=== PATIENT | female | born 1930 | race Caucasian/White ===

== ENCOUNTER 2016-06-23 15:51 | Inpatient (IN) | payer OTHER ==
[~2016-06-23] VITALS: Ht 154.9 cm; Wt 110.4 kg
[~2016-06-23 15:51] MED LIST: ACID REDUCER 1150 MG PO; ADVAIR HFA120 INHAL1 IH; AMOX TR-K CLV1 EAC4 PO; AUGMENTIN875 MG PO; Advair HFA 230/21 IH; BACTERICIN30 GM TP; CALCIUM 600 +1 EAC1 PO; CRANBERRY425 MG PO; CRANBERRY450 M1 PO; Colace PO; DAILY VALUE1 EACH PO; DAILY VITE1 EAC1 PO; DICLOFENAC SOD100 G1 TP; DITROPAN5 MG PO; DULCOLAX10 MG PR; DULCOLAX5 MG PO; DUONEB 2.5-0.5 M3 ML AEROSOL; FEOSOL325 MG PO; FERROUS SULFAT325 MG PO; FLORASTOR250 MG PO; FUROSEMIDE20 MG PO; FUROSEMIDE40 MG PO; HEALTHYLAX17 GM PO; IRON325 MG PO; LASIX20 MG PO; LASIX40 MG PO; LEVAQUIN500 MG PO; LEVOFLOXACIN750 MG PO; LIDODERM 5% P1 PATCH TD; LORTAB 5-325 M1 EACH PO; Levaquin PO; Lovenox SC; MILK OF MAGN PO; MIRALAX17 GM PO; MIRALAX255 GM PO; NORCO 5/3251 TABLET PO; ONE DAILY1 EAC3 PO; OS-CAL 500+D T1 EAC1 PO; OXYBUTYNIN CHLO10 MG PO; OXYBUTYNIN CHLOR5 M1 PO; OXYBUTYNIN CHLOR5 MG PO; PHILLIPS'400 MG/5 M PO; PREDNISONE10 MG PO; PREDNISONE20 MG PO; PREDNISONE5 MG PO; PROBIOTIC & AC1 EACH PO; PROVENTIL,2.5 MG/0.5 IH; RANITIDINE HCL150 MG PO; SENNA PLUS TAB1 EACH PO; SPIRIVA1 INHALATI IH; SPIRONOLACTONE50 MG PO; TYLENOL REGULA325 MG PO; VOLTAREN 1% GE100 GM TP; Xanax PO; ZANTAC150 MG PO; Zestril,Prinivil PO; [UNRECOGNIZED DRUG - OTHER] PO; oxyCODONE PO; predniSONE PO
[2016-06-23 17:21] LABS: EOSINOPHIL (%) 1.2 % (0-5); EOSINOPHIL COUNT 0.2 K/uL (0-0.3); HEMATOCRIT 40.2 % (36.0-46.0); IMMATURE GRANULOCYTE (%) 0.3 % (0.0-0.7); IMMATURE GRANULOCYTE COUNT 0.4 K/uL; LYMPHOCYTE COUNT 2.1 K/uL (1.0-2.8); MCHC 31.6 G/DL (30.0-36.0); MCV 91.8 FL (83-99); MEAN PLAT.VOLUME 10.1 uM^3 (9.5-12.4); MONOCYTE (%) 7.2 % (3-12); MONOCYTE COUNT 0.9 K/uL (0-0.8); NEUTROPHIL (%) 74.7 % (45-76); NEUTROPHIL COUNT 9.5 K/uL (1.8-6.4); PLATELET COUNT 236 K/uL (156-360); RBC DIS.WIDTH-CV 13.9 % (11.8-14.6); RBC DIS.WIDTH-SD 45.2 % (39-53); RED BLOOD COUNT 4.38 M/uL (3.80-5.20); WHITE BLOOD COUNT 12.7 K/uL (4.1-10.2)
[2016-06-23 17:28] LABS: CHLORIDE 95 mEq/L (99-109); POTASSIUM 4.4 mEq/L (3.7-5.4); SODIUM 133 mEq/L (136-147)
[2016-06-23 17:31] LABS: GLUCOSE 121 mg/dL (70-99)
[2016-06-23 17:32] LABS: ANION GAP 11 MEQ/L (2-14)
[2016-06-23 17:33] LABS: TOTAL BILIRUBIN 0.4 mg/dL (0.0-1.0)
[2016-06-23 17:34] LABS: ALKALINE PHOSPHATASE 82 IU/L (3-129); GFR ESTIMATE (CALCULATED) 46 mL/min/
[2016-06-23 17:35] LABS: UREA NITROGEN (BUN) 17 mg/dL (9-23)
[2016-06-23 19:09] LABS: BASE EXCESS 8.1 mEq/L (-3 to +3); BICARBONATE 33.9 mEq/L (22-26); CARBOXY HGB 2.2 % (0-5); METHEMOGLOBIN 1.5 % (0-1.5); PO2 62 mm Hg (80-100); pH 7.43 (7.35-7.45)
[2016-06-23 19:10] LABS: COMMENTS - BLOOD GASES C+; DEVICE NC; O2 FLOW 4 L/MIN; PCO2 51 mm Hg (35-45); SITE RR; TOTAL RESP RATE 16 resp/min
[2016-06-23] MEDS ORDERED: SPIRONOLACTONE50 MG PO (19:43)
[2016-06-23] MEDS ORDERED: CRANBERRY450 M1 PO (19:43)
[2016-06-23] MEDS ORDERED: FUROSEMIDE20 MG PO (19:43)
[2016-06-23] MEDS ORDERED: RANITIDINE HCL150 MG PO (19:45)
[2016-06-23] MEDS ORDERED: CALCIUM 600 +1 EA13 PO (19:46)
[2016-06-23] MEDS ORDERED: PROMETHAZINE HC25 M1 PO (19:48)
[2016-06-23] MEDS ORDERED: PHILLIPS'400 MG/5 M PO (19:48)
[2016-06-23 22:29] VITALS: BP 108/50
[2016-06-23 22:45] LABS: INFLUENZA A VIRAL ANTIGEN NEGATIVE; INFLUENZA B VIRAL ANTIGEN NEGATIVE
[2016-06-24 04:46] VITALS: BP 126/63
[2016-06-24 07:05] LABS: HEMATOCRIT 40.2 % (36.0-46.0); MCH 29.5 PG (29.0-34.0); MCHC 31.6 G/DL (30.0-36.0); MCV 93.3 FL (83-99); MEAN PLAT.VOLUME 10.9 uM^3 (9.5-12.4); PLATELET COUNT 215 K/uL (156-360); RBC DIS.WIDTH-CV 14.1 % (11.8-14.6); RBC DIS.WIDTH-SD 47.8 % (39-53); RED BLOOD COUNT 4.31 M/uL (3.80-5.20)
[2016-06-24 07:35] LABS: ALKALINE PHOSPHATASE 79 IU/L (3-129); ANION GAP 12 MEQ/L (2-14); CHLORIDE 94 MEQ/L (99-109); GFR ESTIMATE (CALCULATED) 46 mL/min/; POTASSIUM 4.4 MEQ/L (3.7-5.4); SAMPLE HEMOLYSIS CHECK 0; SAMPLE ICTERIC CHECK 0; SAMPLE LIPEMIA CHECK 0; SODIUM 137 MEQ/L (136-147); TOTAL BILIRUBIN 0.4 MG/DL (0.0-1.0); UREA NITROGEN (BUN) 16 mg/dL (9-23)
[2016-06-24 07:36] LABS: GLUCOSE 195 mg/dL (70-99)
[2016-06-24 08:12] VITALS: BP 134/67
[2016-06-24 11:15] VITALS: BP 133/65
[2016-06-24 16:50] VITALS: BP 113/65
[2016-06-24 20:00] VITALS: BP 129/66
[2016-06-24 23:33] VITALS: BP 122/62
[2016-06-25 04:00] VITALS: BP 121/64
[2016-06-25 07:13] LABS: MCH 28.3 PG (29.0-34.0); MCHC 30.3 G/DL (30.0-36.0); MCV 93.4 FL (83-99); MEAN PLAT.VOLUME 10.5 uM^3 (9.5-12.4); PLATELET COUNT 217 K/uL (156-360); RBC DIS.WIDTH-CV 13.9 % (11.8-14.6); RBC DIS.WIDTH-SD 47.8 % (39-53); RED BLOOD COUNT 4.07 M/uL (3.80-5.20); WHITE BLOOD COUNT 12.8 K/uL (4.1-10.2)
[2016-06-25 07:36] LABS: ANION GAP 8 MEQ/L (2-14); CHLORIDE 95 MEQ/L (99-109); GFR ESTIMATE (CALCULATED) 56 mL/min/; GLUCOSE 254 mg/dL (70-99); POTASSIUM 4.1 MEQ/L (3.7-5.4); SAMPLE HEMOLYSIS CHECK 0; SAMPLE ICTERIC CHECK 0; SAMPLE LIPEMIA CHECK 0; SODIUM 137 MEQ/L (136-147); UREA NITROGEN (BUN) 23 mg/dL (9-23)
[2016-06-25 08:14] VITALS: BP 135/69
[2016-06-25 12:54] VITALS: BP 142/78
[2016-06-25 16:00] VITALS: BP 124/65
[2016-06-25 21:29] LABS: POINT-OF-CARE METER ID UU14174225
[2016-06-26] VITALS: BP 116/55
[2016-06-26 05:32] LABS: HEMATOCRIT 38.6 % (36.0-46.0); MCH 29.2 PG (29.0-34.0); MCHC 30.8 G/DL (30.0-36.0); MCV 94.6 FL (83-99); MEAN PLAT.VOLUME 11.1 uM^3 (9.5-12.4); PLATELET COUNT 231 K/uL (156-360); RBC DIS.WIDTH-CV 14.1 % (11.8-14.6); RBC DIS.WIDTH-SD 48.5 % (39-53); RED BLOOD COUNT 4.08 M/uL (3.80-5.20); WHITE BLOOD COUNT 15.5 K/uL (4.1-10.2)
[2016-06-26 05:55] LABS: ANION GAP 8 MEQ/L (2-14); CHLORIDE 97 MEQ/L (99-109); GFR ESTIMATE (CALCULATED) 56 mL/min/; GLUCOSE 142 mg/dL (70-99); POTASSIUM 4.4 MEQ/L (3.7-5.4); SAMPLE HEMOLYSIS CHECK 0; SAMPLE ICTERIC CHECK 0; SAMPLE LIPEMIA CHECK 0; SODIUM 139 MEQ/L (136-147); UREA NITROGEN (BUN) 30 mg/dL (9-23)
[2016-06-26 07:46] VITALS: BP 153/80
[2016-06-26 08:47] LABS: Estimated Average Glucose 137 mg/dL (70-123); HEMOGLOBIN A1c (GLYCOHEMOGLOB) 6.4 % HGB (Below 5.7)
[2016-06-26] MEDS ORDERED: BENZONATATE100 MG PO (09:15)
[2016-06-26] MEDS ORDERED: LEVEMIR100 UNIT/2 SC (09:15)
[2016-06-26] MEDS ORDERED: PREDNISONE20 MG PO (09:15)
[2016-06-26] MEDS ORDERED: LEVAQUIN500 MG PO (09:16)
== END 2016-06-26 13:02 | DRG 871 ==
LOC: EME 15:51 → 5SOUTH 19:35 → EDOF 19:35 → 5SOUTH 22:03
PROVIDERS: Emergency Medicine; Hospitalist; Physician Assistant Medical
DX: A41.9 Sepsis, unspecified organism (principal); J44.0 Chronic obstructive pulmonary disease with (acute) lower respiratory infection; J18.1 Lobar pneumonia, unspecified organism; J96.21 Acute and chronic respiratory failure with hypoxia; J96.22 Acute and chronic respiratory failure with hypercapnia; Y95 Nosocomial condition; J44.1 Chronic obstructive pulmonary disease with (acute) exacerbation; I50.32 Chronic diastolic (congestive) heart failure; E87.4 Mixed disorder of acid-base balance; E87.1 Hypo-osmolality and hyponatremia; E66.2 Morbid (severe) obesity with alveolar hypoventilation; Z68.42 Body mass index [BMI] 45.0-49.9, adult; N18.3 Chronic kidney disease, stage 3 (moderate); E11.22 Type 2 diabetes mellitus with diabetic chronic kidney disease; D63.1 Anemia in chronic kidney disease; I27.2 Other secondary pulmonary hypertension; K21.9 Gastro-esophageal reflux disease without esophagitis; Z99.81 Dependence on supplemental oxygen; J90 Pleural effusion, not elsewhere classified; J45.909 Unspecified asthma, uncomplicated; Z87.891 Personal history of nicotine dependence; G89.29 Other chronic pain; M54.5 Low back pain; F03.90 Unspecified dementia, unspecified severity, without behavioral disturbance, psychotic disturbance, mood disturbance, and anxiety; Z91.041 Radiographic dye allergy status; Z66 Do not resuscitate
CPT/HCPCS: 36600; 71010; 71250; 80048; 80053; 81003; 82803; 82948; 83036; 83605; 85025; 85027; 87040; 87070; 87205; 87502; 92610 GN; 94640; 94640 76; 94799; 99202; 99281; 99285; J0456; J0692; J1644; J1815; J1940; J2930; J7050; J7120; J7512

== ENCOUNTER 2016-11-11 10:17 | Emergency (ER) | payer OTHER ==
[~2016-11-11] VITALS: Ht 154.9 cm; Wt 106.9 kg
[~2016-11-11 10:17] MED LIST changes: +BENZONATATE100 MG PO; +CALCIUM 600 +1 EA13 PO; +LEVEMIR100 UNIT/2 SC; +PROMETHAZINE HC25 M1 PO
[2016-11-11 11:02] LABS: EOSINOPHIL (%) 3.6 % (0-5); EOSINOPHIL COUNT 0.3 K/uL (0-0.3); HEMATOCRIT 39.8 % (36.0-46.0); IMMATURE GRANULOCYTE (%) 0.5 % (0.0-0.7); INSTRUMENT ABS NEUTROPHIL CT 5.8 K/uL; LYMPHOCYTE COUNT 1.5 K/uL (1.0-2.8); MCH 28.6 PG (29.0-34.0); MCHC 31.7 G/DL (30.0-36.0); MCV 90.2 FL (83-99); MEAN PLAT.VOLUME 10.3 uM^3 (9.5-12.4); MONOCYTE (%) 7.6 % (3-12); MONOCYTE COUNT 0.6 K/uL (0-0.8); NEUTROPHIL (%) 69.6 % (45-76); NEUTROPHIL COUNT 5.8 K/uL (1.8-6.4); PLATELET COUNT 238 K/uL (156-360); RBC DIS.WIDTH-CV 13.3 % (11.8-14.6); RBC DIS.WIDTH-SD 43.8 % (39-53); RED BLOOD COUNT 4.41 M/uL (3.80-5.20); WHITE BLOOD COUNT 8.3 K/uL (4.1-10.2)
[2016-11-11 11:10] LABS: CHLORIDE 101 mEq/L (99-109); POTASSIUM 4.5 mEq/L (3.7-5.4); SODIUM 138 mEq/L (136-147)
[2016-11-11 11:13] LABS: GLUCOSE 113 mg/dL (70-99)
[2016-11-11 11:14] LABS: ANION GAP 5 MEQ/L (2-14)
[2016-11-11 11:15] LABS: TOTAL BILIRUBIN 0.5 mg/dL (0.0-1.0)
[2016-11-11 11:16] LABS: ALKALINE PHOSPHATASE 73 IU/L (3-129); GFR ESTIMATE (CALCULATED) > 59 mL/min/
[2016-11-11 11:17] LABS: UREA NITROGEN (BUN) 17 mg/dL (9-23)
[2016-11-11 11:20] LABS: LIPASE 3 U/L (1.0-51.0)
[2016-11-11 12:57] LABS: D-DIMER ELISA 2.49 mg/L FEU (< 0.57)
[2016-11-11 13:02] LABS: ADD MIUA? YES; BILIRUBIN NEGATIVE; BLOOD NEGATIVE; GLUCOSE (STRIP) NEGATIVE; KETONES NEGATIVE; LEUKOCYTES TRACE; NITRITE NEGATIVE; PROTEIN (STRIP) NEGATIVE; SPECIFIC GRAVITY 1.015 (1.000-1.030); UROBILINOGEN 0.2 MG/DL (0.2-1.0)
[2016-11-11 13:06] LABS: COLOR YELLOW ((YELLOW))
[2016-11-11 13:17] LABS: BACTERIA NONE SEEN /HPF; EPITHELIAL CELLS RARE /HPF; MUCUS TRACE /LPF; RED BLOOD CELLS NONE SEEN /HPF (0-5); UCUL ADDED? NO
[2016-11-11] MEDS ORDERED: CIPRO500 MG PO (17:04)
[2016-11-11] MEDS ORDERED: TYLENOL WITH C1 EACH PO (17:35)
[2016-11-11 19:30] VITALS: BP 104/71
== END 2016-11-11 19:33 ==
LOC: EME 10:17
PROVIDERS: Emergency Medicine
DX: R10.9 Unspecified abdominal pain (principal); N39.0 Urinary tract infection, site not specified; J45.909 Unspecified asthma, uncomplicated; J44.9 Chronic obstructive pulmonary disease, unspecified; I10 Essential (primary) hypertension; K21.9 Gastro-esophageal reflux disease without esophagitis; D64.9 Anemia, unspecified; F03.90 Unspecified dementia, unspecified severity, without behavioral disturbance, psychotic disturbance, mood disturbance, and anxiety; Z91.041 Radiographic dye allergy status; Z87.891 Personal history of nicotine dependence
CPT/HCPCS: 71010; 74176; 76705; 78582; 80053; 81003; 83690; 85025; 85379; 85610; 93005; 99281; 99285; A9540; A9567; J7030

== ENCOUNTER 2017-08-04 12:18 | Inpatient (IN) | payer OTHER ==
[~2017-08-04] VITALS: Ht 154.9 cm; Wt 118.6 kg
[~2017-08-04 12:18] MED LIST changes: +CIPRO500 MG PO; +LIDOCARE1 EACH TP; +TYLENOL WITH C1 EACH PO
[2017-08-04 13:28] LABS: HEMATOCRIT 41.7 % (36.0-46.0); HEMOGLOBIN 13.4 G/DL (11.9-15.5); MCH 29.9 PG (29.0-34.0); MCHC 32.1 G/DL (30.0-36.0); MCV 93.1 FL (83-99); NRBC (%) 0.4 /100 WBC (0-0); PLATELET COUNT 141 K/uL (156-360); RBC DIS.WIDTH-CV 14.5 % (11.8-14.6); RBC DIS.WIDTH-SD 49.9 % (39-53); RED BLOOD COUNT 4.48 M/uL (3.80-5.20); WHITE BLOOD COUNT 7.7 K/uL (4.1-10.2)
[2017-08-04 13:38] LABS: CHLORIDE 98 mEq/L (99-109); POTASSIUM 4.8 mEq/L (3.7-5.4); SODIUM 137 mEq/L (136-147)
[2017-08-04 13:43] LABS: CREATININE 1.2 mg/dL (0.6-1.3); GFR ESTIMATE (CALCULATED) 45 mL/min/
[2017-08-04 13:44] LABS: GLUCOSE 130 mg/dL (70-99); UREA NITROGEN (BUN) 23 mg/dL (9-23)
[2017-08-04 13:53] LABS: TROP-I INTERPRETATION NEGATIVE; TROPONIN-I 0.04 ng/mL (0.0-0.30)
[2017-08-04] MEDS ORDERED: INCRUSE ELLI62.5 MCG IH (15:14)
[2017-08-04] MEDS ORDERED: LEVAQUIN750 MG PO (15:15)
[2017-08-04] MEDS ORDERED: MUCINEX600 MG PO (15:20)
[2017-08-04] MEDS ORDERED: COUGH DROPS5 MG MM (15:24)
[2017-08-04] MEDS ORDERED: ROBITUSSIN DM118 ML PO (15:29)
[2017-08-04 18:36] VITALS: BP 149/66
[2017-08-04 23:57] VITALS: BP 136/63
[2017-08-05 04:41] VITALS: BP 139/65
[2017-08-05 06:36] LABS: HEMATOCRIT 40.7 % (36.0-46.0); HEMOGLOBIN 12.3 G/DL (11.9-15.5); MCH 28.5 PG (29.0-34.0); MCHC 30.2 G/DL (30.0-36.0); MCV 94.4 FL (83-99); PLATELET COUNT 180 K/uL (156-360); RBC DIS.WIDTH-SD 49.1 % (39-53); RED BLOOD COUNT 4.31 M/uL (3.80-5.20); WHITE BLOOD COUNT 3.9 K/uL (4.1-10.2)
[2017-08-05 07:04] LABS: ABS NEUTROPHIL COUNT 3.5; ATYPICAL LYMPHOCYTE 2.6 %; BAND NEUTROPHILS 11.3 % (0-8.0); EOSINOPHIL ABS CT 0; LYMPHOCYTES 6.1 % (15.0-45.0); MONOCYTES 0.9 % (0-9.0); MYELOCYTES 0.9 %; PLAT.SUFFICIENCY ADEQUATE; SEG.NEUTROPHILS 78.2 % (46.0-76.0)
[2017-08-05 07:07] LABS: CHLORIDE 100 MEQ/L (99-109); CREATININE 1.1 MG/DL (0.6-1.3); GFR ESTIMATE (CALCULATED) 50 mL/min/; GLUCOSE 191 mg/dL (70-99); POTASSIUM 4.6 MEQ/L (3.7-5.4); SODIUM 141 MEQ/L (136-147); UREA NITROGEN (BUN) 24 mg/dL (9-23)
[2017-08-05 07:36] VITALS: BP 129/59
[2017-08-05 11:39] VITALS: BP 141/65
[2017-08-05 15:41] VITALS: BP 122/58
[2017-08-05 19:29] VITALS: BP 124/59
[2017-08-05 23:26] VITALS: BP 124/59
[2017-08-06 03:53] VITALS: BP 136/63
[2017-08-06 07:57] VITALS: BP 120/70
[2017-08-06 11:45] VITALS: BP 138/58
[2017-08-06 16:56] VITALS: BP 134/67
[2017-08-07] VITALS: BP 128/54
[2017-08-07 08:00] VITALS: BP 164/52
[2017-08-07 10:22] LABS: BASOPHIL (%) 0.2 % (0-1); EOSINOPHIL (%) 0 % (0-5); HEMATOCRIT 38.9 % (36.0-46.0); HEMOGLOBIN 11.7 G/DL (11.9-15.5); IMMATURE GRANULOCYTE (%) 1.1 % (0.0-0.7); LYMPHOCYTE (%) 17.8 % (15-42); LYMPHOCYTE COUNT 1.5 K/uL (1.0-2.8); MCH 28.4 PG (29.0-34.0); MCHC 30.1 G/DL (30.0-36.0); MCV 94.4 FL (83-99); MONOCYTE (%) 9.1 % (3-12); MONOCYTE COUNT 0.7 K/uL (0-0.8); NEUTROPHIL (%) 71.8 % (45-76); NEUTROPHIL COUNT 5.8 K/uL (1.8-6.4); PLATELET COUNT 194 K/uL (156-360); RBC DIS.WIDTH-CV 13.6 % (11.8-14.6); RED BLOOD COUNT 4.12 M/uL (3.80-5.20); WHITE BLOOD COUNT 8.1 K/uL (4.1-10.2)
[2017-08-07 10:47] LABS: CHLORIDE 99 MEQ/L (99-109); CREATININE 0.9 MG/DL (0.6-1.3); GFR ESTIMATE (CALCULATED) > 59 mL/min/; GLUCOSE 162 mg/dL (70-99); POTASSIUM 4.4 MEQ/L (3.7-5.4); SODIUM 140 MEQ/L (136-147); UREA NITROGEN (BUN) 34 mg/dL (9-23)
[2017-08-07 16:59] LABS: BASE EXCESS 11.1 mEq/L (-3 to +3); BICARBONATE 40.1 mEq/L (22-26); COMMENTS - BLOOD GASES A+C+; DEVICE NC; METHEMOGLOBIN 1.7 % (0-1.5); O2 FLOW 5 L/MIN; PCO2 76 mm Hg (35-45); PO2 85 mm Hg (80-100); SITE LR; pH 7.33 (7.35-7.45)
[2017-08-07 23:52] VITALS: BP 165/70
[2017-08-08 07:26] VITALS: BP 148/67
[2017-08-08 08:17] LABS: BASOPHIL (%) 0.5 % (0-1); EOSINOPHIL (%) 0 % (0-5); HEMOGLOBIN 12.7 G/DL (11.9-15.5); LYMPHOCYTE (%) 10.2 % (15-42); LYMPHOCYTE COUNT 0.6 K/uL (1.0-2.8); MCH 28.6 PG (29.0-34.0); MCV 92.3 FL (83-99); MONOCYTE (%) 3.7 % (3-12); MONOCYTE COUNT 0.2 K/uL (0-0.8); NEUTROPHIL (%) 83.6 % (45-76); NEUTROPHIL COUNT 4.9 K/uL (1.8-6.4); PLATELET COUNT 205 K/uL (156-360); RBC DIS.WIDTH-CV 13.2 % (11.8-14.6); RBC DIS.WIDTH-SD 44.5 % (39-53); RED BLOOD COUNT 4.44 M/uL (3.80-5.20); WHITE BLOOD COUNT 5.9 K/uL (4.1-10.2)
[2017-08-08 08:50] LABS: CHLORIDE 93 MEQ/L (99-109); CREATININE 0.9 MG/DL (0.6-1.3); GFR ESTIMATE (CALCULATED) > 59 mL/min/; POTASSIUM 4.6 MEQ/L (3.7-5.4); SODIUM 141 MEQ/L (136-147); UREA NITROGEN (BUN) 33 mg/dL (9-23)
[2017-08-08 09:07] LABS: GLUCOSE 289 mg/dL (70-99)
[2017-08-08 09:08] LABS: CARBON DIOXIDE (BICARBONATE) > 40.0 MEQ/L (20-31)
[2017-08-08 11:20] LABS: BASE EXCESS 17.1 mEq/L (-3 to +3); BICARBONATE 45.8 mEq/L (22-26); METHEMOGLOBIN 1.6 % (0-1.5); PCO2 74 mm Hg (35-45); PO2 91 mm Hg (80-100)
[2017-08-08 11:21] LABS: COMMENTS - BLOOD GASES A+C+; DEVICE NC; O2 FLOW 5 L/MIN; SITE LR; TOTAL RESP RATE 22 resp/min
[2017-08-08 15:22] VITALS: BP 137/69
[2017-08-09] VITALS: BP 152/79
[2017-08-09 07:14] VITALS: BP 137/63
[2017-08-09 08:52] LABS: BASOPHIL (%) 0.1 % (0-1); EOSINOPHIL (%) 0 % (0-5); HEMATOCRIT 40.3 % (36.0-46.0); HEMOGLOBIN 12.7 G/DL (11.9-15.5); IMMATURE GRANULOCYTE (%) 1.5 % (0.0-0.7); LYMPHOCYTE (%) 9.9 % (15-42); LYMPHOCYTE COUNT 0.7 K/uL (1.0-2.8); MCH 28.9 PG (29.0-34.0); MCHC 31.5 G/DL (30.0-36.0); MCV 91.6 FL (83-99); MONOCYTE (%) 3.7 % (3-12); MONOCYTE COUNT 0.3 K/uL (0-0.8); NEUTROPHIL (%) 84.8 % (45-76); NEUTROPHIL COUNT 6.4 K/uL (1.8-6.4); PLATELET COUNT 215 K/uL (156-360); RBC DIS.WIDTH-CV 13.1 % (11.8-14.6); RBC DIS.WIDTH-SD 44.5 % (39-53); WHITE BLOOD COUNT 7.5 K/uL (4.1-10.2)
[2017-08-09 09:26] LABS: CARBON DIOXIDE (BICARBONATE) > 40.0 MEQ/L (20-31); CHLORIDE 95 MEQ/L (99-109); CREATININE 0.8 MG/DL (0.6-1.3); GFR ESTIMATE (CALCULATED) > 59 mL/min/; GLUCOSE 279 mg/dL (70-99); MAGNESIUM 2.2 mg/dl (1.3-2.7); POTASSIUM 4.6 MEQ/L (3.7-5.4); SODIUM 142 MEQ/L (136-147); UREA NITROGEN (BUN) 37 mg/dL (9-23)
[2017-08-09 15:06] VITALS: BP 150/56
[2017-08-10 00:29] VITALS: BP 154/69
[2017-08-10 07:34] LABS: CHLORIDE 95 MEQ/L (99-109); CREATININE 0.8 MG/DL (0.6-1.3); GFR ESTIMATE (CALCULATED) > 59 mL/min/; GLUCOSE 211 mg/dL (70-99); POTASSIUM 4.1 MEQ/L (3.7-5.4); SODIUM 144 MEQ/L (136-147); UREA NITROGEN (BUN) 43 mg/dL (9-23)
[2017-08-10 07:37] LABS: CARBON DIOXIDE (BICARBONATE) > 40.0 MEQ/L (20-31)
[2017-08-10 07:50] VITALS: BP 145/65
[2017-08-10 15:53] VITALS: BP 141/63
[2017-08-11] VITALS: BP 138/63
[2017-08-11 07:59] VITALS: BP 127/58
[2017-08-11 08:15] LABS: CHLORIDE 95 MEQ/L (99-109); CREATININE 0.8 MG/DL (0.6-1.3); GFR ESTIMATE (CALCULATED) > 59 mL/min/; GLUCOSE 145 mg/dL (70-99); POTASSIUM 3.9 MEQ/L (3.7-5.4); SODIUM 143 MEQ/L (136-147); UREA NITROGEN (BUN) 38 mg/dL (9-23)
[2017-08-11 16:37] VITALS: BP 132/60
[2017-08-12] VITALS: BP 140/65
[2017-08-12 07:13] LABS: CARBON DIOXIDE (BICARBONATE) > 40.0 MEQ/L (20-31); CHLORIDE 93 MEQ/L (99-109); CREATININE 0.7 MG/DL (0.6-1.3); GFR ESTIMATE (CALCULATED) > 59 mL/min/; GLUCOSE 120 mg/dL (70-99); POTASSIUM 3.8 MEQ/L (3.7-5.4); SODIUM 141 MEQ/L (136-147); UREA NITROGEN (BUN) 31 mg/dL (9-23)
[2017-08-12 07:18] VITALS: BP 148/67
[2017-08-12] MEDS ORDERED: LORAZEPAM0.5 MG PO (09:54)
[2017-08-12] MEDS ORDERED: FUROSEMIDE40 MG PO (09:54)
[2017-08-12] MEDS ORDERED: ACIDOPHILUS LA1 EACH PO (09:54)
[2017-08-12] MEDS ORDERED: PREDNISONE10 MG PO (09:54)
[2017-08-12 13:30] VITALS: BP 136/64
== END 2017-08-12 13:49 | DRG 193 ==
LOC: EME 12:18 → EDOF 14:28 → ENRESERV 14:28 → 5SOUTH 14:28 → ENRESERV 16:39 → 5SOUTH 18:00
PROVIDERS: Emergency Medicine; Hospitalist; Internal Medicine; Internal Medicine Infectious Disease; Physician Assistant
PROC: 5A09357 Assistance with Respiratory Ventilation, Less than 24 Consecutive Hours, Continuous Positive Airway Pressure (ICD-10-PCS; principal; 2017-08-07)
DX: J18.9 Pneumonia, unspecified organism (principal); Y95 Nosocomial condition; J44.0 Chronic obstructive pulmonary disease with (acute) lower respiratory infection; J44.1 Chronic obstructive pulmonary disease with (acute) exacerbation; J96.21 Acute and chronic respiratory failure with hypoxia; J96.22 Acute and chronic respiratory failure with hypercapnia; J20.9 Acute bronchitis, unspecified; E66.2 Morbid (severe) obesity with alveolar hypoventilation; Z68.42 Body mass index [BMI] 45.0-49.9, adult; I11.0 Hypertensive heart disease with heart failure; I50.32 Chronic diastolic (congestive) heart failure; I27.20 Pulmonary hypertension, unspecified; I34.0 Nonrheumatic mitral (valve) insufficiency; D63.8 Anemia in other chronic diseases classified elsewhere; E11.9 Type 2 diabetes mellitus without complications; I25.10 Atherosclerotic heart disease of native coronary artery without angina pectoris; K21.9 Gastro-esophageal reflux disease without esophagitis; G89.29 Other chronic pain; M54.9 Dorsalgia, unspecified; R00.0 Tachycardia, unspecified; F03.90 Unspecified dementia, unspecified severity, without behavioral disturbance, psychotic disturbance, mood disturbance, and anxiety; Z66 Do not resuscitate; Z87.891 Personal history of nicotine dependence; Z22.322 Carrier or suspected carrier of Methicillin resistant Staphylococcus aureus; Z90.710 Acquired absence of both cervix and uterus; Z99.81 Dependence on supplemental oxygen
CPT/HCPCS: 36600; 71045; 71046; 80048; 80202; 82803; 83605; 83735; 83880; 84484; 85025; 85027; 87040; 87070; 87205; 87449; 87493; 87502; 87641; 92610 GN; 93005; 94010; 94640; 94640 76; 94660; 94667; 94668; 94760; 94799; 97530 GP; 99202; 99281; 99285; J0456; J0692; J1650; J1940; J2543; J2920; J2930; J3370; J7030; J7050; J7512; J7644